=== PATIENT | male | born 1995 | race Caucasian/White ===

== ENCOUNTER 2021-04-20 04:59 | Emergency (ER) | payer OTHER, SELFPAY ==
--- NOTE | ~2021-04-20 | XR_ITS ---
EXAMINATION: XR chest 1V portable DATE: 04/20/2021 06:33 INDICATION: Cough. Shortness of breath. Midsternal chest pain. TECHNIQUE: A single frontal view of the chest was obtained on 2 radiographs. COMPARISON: None. FINDINGS: The chest demonstrates clear lungs without pneumonia, pleural effusion, or pneumothorax. Th e heart size is normal. IMPRESSION: 1. No acute cardiopulmonary disease. Reviewed, dictated and finalized at location A. [employer]
[2021-04-20 05:03] VITALS: BP 142/88; PULSE 91; RESP 22; TEMP 37.1; O2SAT 99
--- NOTE | 2021-04-20 05:12 | ECG_ITS ---
Measurements Intervals [place] Rate: 80 P: 43 TX: 139 QRS: 85 QRSD: 90 T: 61 QT: 323 QTc: 373 Interpretive Statements SINUS RHYTHM WITH SINUS ARRHYTHMIA CANNOT RULE OUT SEPTAL INFARCT, AGE INDETERMINATE ABNORMAL ECG Electronically Signed On 04-20-2021 6:24:09 [employer] by Harpreet Vu D.O.
[2021-04-20 05:26] LABS: Basophils Percent Auto 0.1 % (0.2-1.2); Eosinophils Absolute Auto 0.2 K/mm3 (0-0.3); Eosinophils Percent Auto 2.6 % (0-4.4); Hematocrit 42.8 % (42.0-52.0); Hemoglobin 14.8 g/dL (14.0-18.0); Immature Granulocyte Absolute 0.01 K/mm3 (0.00-0.031); Immature Granulocyte Percent A 0.1 % (0-0.5); Lymphocytes Absolute Auto 4.02 K/mm3 (0.9-3.2); Lymphocytes Percent Auto 52.4 % (18.3-44.2); Mean Corpuscular HGB Conc 34.6 g/dl (32-36); Mean Corpuscular Hemoglobin 28.8 pg (26-34); Mean Corpuscular Volume 83.3 fl (80-100); Mean Platelet Volume 8.9 fl (7.4-10.4); Neutrophils Absolute Auto 2.4 K/mm3 (1.3-6.7); Neutrophils Percent Auto 31.8 % (45.5-73.1); Platelet Count Result 311 k/mm3 (150-375); Red Blood Count 5.14 M/mm3 (4.6-6.20); Red Cell Distribution Width 12.3 % (11.5-14.5); White Blood Count 7.7 K/mm3 (4.5-10.0)
[2021-04-20 05:37] LABS: Alanine Aminotransferase 28 U/L (4-50); Albumin Level 4.3 g/dL (3.5-5.1); Alkaline Phosphatase 110 U/L (38-126); Anion Gap 8 mmol/L (8-16); Aspartate Amino Transferase 25 U/L (17-59); Bilirubin,Total 0.6 mg/dL (0.2-1.3); Blood Urea Nitrogen 11 mg/dL (9-20); Calcium 10.1 mg/dL (8.4-10.2); Carbon Dioxide 24 mmol/L (22-30); Chloride 102 mmol/L (98-107); Estimated CRCL calculation 113 ml/min; Estimated Glomerular Filt Rate > 60; Glucose 105 mg/dL (65-110); Potassium 3.9 mmol/L (3.4-5.0); Sodium 134 mmol/L (137-145)
--- NOTE | 2021-04-20 06:13 | ED.GENADULT ---
HPI - General Adult General Chief complaint: Arrhythmia/Palpitations Stated complaint: high heart rate x 1 month Time Seen by Provider: 04/20/21 06:04 History of Present Illness HPI narrative: Patient a 25-year-old gentleman who presents the emergency department with chief complaint of high heart rate. The patient states that he has been losing weight over the last month and a half reports that he has had lightheaded feelings and also has felt nauseated he also reports that his appetites been less frequently felt these had palpitations as well the patient states he feels as though his resting heart rate has been increased and reports that whenever he walks upstairs or does any kind of activity his heart rate shoots up into the 150s. The patient states that he has a family history for thyroid disease and also thyroid cancer the patient states that he was seen by his primary care physician who did a Covid test on him approximately 2 weeks ago the patient denies fever Related Data Home Medications Medication Instructions Recorded Confirmed diphenhydramine HCl [Banophen] 25 mg PO HS 04/20/21 04/20/21 Allergies Allergy/AdvReac Type Severity Reaction Status Date / Time No Known Allergies Allergy Verified 04/20/21 05:08 Review of Systems Review of Systems: A 10 system review of systems was completed on the patient and is negative except for what is stated in the HPI. Nursing and ancillary documentation was reviewed. Exam Narrative: GENERAL: Well-appearing, well-nourished, and in no acute distress. HEAD: Normocephalic, atraumatic. EYES: PERRLA and EOMI. ENT: Nares clear, no rhinorrhea or epistaxis. Mucous membranes moist. NECK: Supple. CHEST: Clear to auscultation. No respiratory distress. HEART: Regular rate and rhythm. No murmur heard. Normal peripheral pulses. ABDOMEN: Soft, nontender, nondistended, normal active bowel sounds. EXTREMITIES: Normal range of motion. No edema. SKIN: Warm, dry, no rash. NEURO: No focal deficits. Alert and oriented x3. PSYCH: Normal mood and affect. Course Vital Signs Vital signs: Vital Signs Temperature 37.1 C 04/20/21 05:03 Pulse Rate 91 04/20/21 05:03 Respiratory Rate 22 H 04/20/21 05:03 Blood Pressure 142/88 H 04/20/21 05:03 Pulse Oximetry 99 04/20/21 05:03 Temperature 37.1 C 04/20/21 05:03 Pulse Rate 96 04/20/21 06:43 Respiratory Rate 20 04/20/21 06:43 Blood Pressure 137/72 04/20/21 06:43 Pulse Oximetry 98 04/20/21 06:43 Medical Decision Making Vital Signs Vital Signs: Vital Signs Temperature 37.1 C 04/20/21 05:03 Pulse Rate 91 04/20/21 05:03 Respiratory Rate 22 H 04/20/21 05:03 Blood Pressure 142/88 H 04/20/21 05:03 Pulse Oximetry 99 04/20/21 05:03 Temperature 37.1 C 04/20/21 05:03 Pulse Rate 96 04/20/21 06:43 Respiratory Rate 20 04/20/21 06:43 Blood Pressure 137/72 04/20/21 06:43 Pulse Oximetry 98 04/20/21 06:43 Lab Data Result diagrams: 04/20/21 05:17 04/20/21 05:17 Labs: Lab Results 04/20/21 04/20/21 04/20/21 Range/Units 05:17 05:17 06:25 WBC 7.7 (4.5-10.0) K/mm3 RBC 5.14 (4.6-6.20) M/mm3 Hgb 14.8 (14.0-18.0) g/dL Hct 42.8 (42.0-52.0) % MCV 83.3 (80-100) fl MCH 28.8 (26-34) pg MCHC 34.6 (32-36) g/dl RDW 12.3 (11.5-14.5) % Plt Count 311 (150-375) k/mm3 MPV 8.9 (7.4-10.4) fl Immature Gran % (Auto) 0.1 (0-0.5) % Neut % (Auto) 31.8 L (45.5-73.1) % Lymph % (Auto) 52.4 H (18.3-44.2) % Webb % (Auto) 13.0 H (2.6-8.5) % Eos % (Auto) 2.6 (0-4.4) % Baso % (Auto) 0.1 L (0.2-1.2) % Lymph # (Auto) 4.02 H (0.9-3.2) K/mm3 Webb # (Auto) 1.0 H (0.1-0.6) K/mm3 Eos # (Auto) 0.2 (0-0.3) K/mm3 Baso # (Auto) 0.0 (0.0-0.1) K/mm3 Abs Immat Gran (auto) 0.01 (0.00-0.031) K/mm3 Absolute Neuts (auto) 2.4 (1.3-6.7) K/mm3 Absolute Nucleated RBC 0.0 (0.0-0.012) K/mm
[2021-04-20 06:42] LABS: Lactic Acid Reflex 0.7 mmol/L (0.7-2.1)
[2021-04-20 06:43] VITALS: BP 137/72; PULSE 96; RESP 20; O2SAT 98
[2021-04-20 06:43] LABS: Magnesium 1.7 mg/dL (1.6-2.3)
[2021-04-20] MEDS: SODIUM CHLORIDE 0.9% IV 1,000 ML 999 ML IV CONT (06:44)
[2021-04-20 06:51] LABS: Add Urine Microscopic? NO; Appearance Urine Clear (Clear); Bilirubin Urine Negative (Negative); Blood Urine Negative (Negative); Color Urine Yellow (Yellow); Glucose Urine UA Negative (Negative); Ketones Urine Negative (Negative); Leukocyte Esterase Ur Negative LEU/UL (Negative); Nitrate Urine Negative (Negative); Protein Urine Negative (Negative); Specific Grav Ur 1.012 (1.001-1.035); Urobilinogen Urine Negative mg/dL (<2.0)
[2021-04-20 06:55] LABS: Troponin I < 0.012 ng/mL (0.000-0.034)
[2021-04-20 07:13] LABS: Thyroid Stimulating Hormone < 0.015 uIU/mL (0.465-4.680)
[2021-04-20 07:56] VITALS: BP 133/75; PULSE 105; RESP 19; O2SAT 98
== END 2021-04-20 07:58 | disposition home or self-care (01) ==
PROVIDERS: Emergency Provider Emergency Medicine
DX: E05.90 Thyrotoxicosis, unspecified without thyrotoxic crisis or storm (principal); R00.2 Palpitations
CPT/HCPCS: 36415; 71045; 80053; 81003; 83605; 83735; 84443; 84484; 85025; 93005; 96360; 99284; J7030